=== PATIENT | male | born 1965 | race American Indian/Alaskan Native ===

== ENCOUNTER 2021-02-17 10:50 | Emergency (ER) | payer SELFPAY ==
[~2021-02-17] VITALS: Ht 167.6 cm; Wt 104.3 kg
[2021-02-17] MEDS ORDERED: TETANUS-DIPTH-ACEL PERTUSSIS 0.5ML SYR Tdap IM ONE (16:00)
[2021-02-17 16:41] VITALS: BP 145/86
== END 2021-02-17 17:12 | disposition home or self-care (01) ==
LOC: ER 10:50
DX: L03.113 Cellulitis of right upper limb (principal)
CPT/HCPCS: 73130; 73200; 90471; 90715